=== PATIENT | male | born 1950 | race Hispanic/Latino ===

== ENCOUNTER 2017-06-25 07:41 | Day surgery (SDC) | payer OTHER, MEDICARE ==
[2017-06-19 10:06] LABS: BASOPHILS % (AUTO) 0.9 % (0.0-5.0); EOSINOPHILS % (AUTO) 1.6 % (0.0-8.0); HEMATOCRIT 43.8 % (42-54); LYMPHOCYTES % (AUTO) 27.6 % (21.0-51.0); MEAN CORPUSCULAR HEMOGLOBIN 31.7 pg (27.0-33.0); MEAN CORPUSCULAR HGB CONC 34.4 g/dL (32.0-36.0); MEAN CORPUSCULAR VOLUME 92.3 fL (79-99); NEUTROPHILS % (AUTO) 62.9 % (40.0-77.0); PLATELET COUNT (AUTO) 200 K/uL (130-400); RED BLOOD CELL COUNT(AUTO) 4.75 MIL/uL (4.50-6.20); RED CELL DISTRIBUTION WIDTH 13.2 % (11.0-15.5); WHITE BLOOD COUNT (AUTO) 6.6 K/uL (4.8-10.8)
[2017-06-19 10:07] VITALS: BP 123/76
[2017-06-19 10:17] LABS: CREATININE 1.2 mg/dL (0.5-1.5); POTASSIUM 4.8 mmol/L (3.5-5.1)
[~2017-06-25] VITALS: Ht 168.9 cm; Wt 75.4 kg
[2017-06-25] VITALS (9 sets, daily range): BP systolic 91–112; BP diastolic 58–71
[2017-06-25] MEDS: CEFAZOLIN SODIUM 1 GM VIAL IV SCH ×2 (05:00→10:34)
[~2017-06-25 07:41] MED LIST: ASPI500T65 PO; MULT-40 PO; SODIUM CHLORIDE 0.9% 1000ML 1,000 ML IV SCH
[2017-06-25] MEDS ORDERED: BUPIVACAINE/PF 0.5% 30ML VIAL ONE (08:43)
[2017-06-25] MEDS ORDERED: LACTATED RINGERS 1000ML 1,000 ML IV ONE (08:53)
[2017-06-25] MEDS ORDERED: LIDOCAINE HCL 1% 20 ML VIAL ONE (09:57)
[2017-06-25] MEDS ORDERED: LIDOCAINE HCL/EPINEPHRINE 50 ML VIAL IJ ONE (09:57)
[2017-06-25] MEDS ORDERED: MIDAZOLAM HCL 1 MG/ML 2ML VIAL ONE ×3 (10:25→10:42)
[2017-06-25] MEDS ORDERED: FENTANYL CITRATE PF 50 MCG/1 ML 2ML VIAL ONE (10:26)
== END 2017-06-25 12:35 | disposition home or self-care (01) ==
LOC: ENDO 07:41 → DAH 07:41 → ENDO 12:35
PROVIDERS: ATTEND Surgery
DX: D23.5 Other benign neoplasm of skin of trunk (principal); Z87.898 Personal history of other specified conditions; Z96.651 Presence of right artificial knee joint; Z98.890 Other specified postprocedural states; Z80.0 Family history of malignant neoplasm of digestive organs; Z83.79 Family history of other diseases of the digestive system
CPT/HCPCS: 11406; 12032; 36415; 80048; 85025; 88304; A4218; A4452; A4930; J0690; J2250 ×3; J3010; J3490; J7120

== ENCOUNTER 2018-05-29 11:56 | Emergency (ER) | payer MEDICARE, OTHER ==
[~2018-05-29 11:56] MED LIST changes: -SODIUM CHLORIDE 0.9% 1000ML 1,000 ML IV SCH
[2018-05-29] MEDS ORDERED: ONDANSETRON HCL 4 MG/2 ML VIAL ONE (12:19)
[2018-05-29] MEDS ORDERED: 0.9% SODIUM CHLORIDE 1000 ML IV BAG IV ONE (12:22)
[2018-05-29] MEDS ORDERED: ACETAMINOPHEN EXTRA STRENGTH 500 MG TABLET ONE (12:23)
[2018-05-29 12:30] LABS: BASOPHILS % (AUTO) 0.5 % (0.0-5.0); EOSINOPHILS % (AUTO) 0.5 % (0.0-8.0); HEMATOCRIT 47.1 % (42-54); LYMPHOCYTES % (AUTO) 3.4 % (21.0-51.0); MEAN CORPUSCULAR HEMOGLOBIN 31.8 pg (27.0-33.0); MEAN CORPUSCULAR HGB CONC 34.9 g/dL (32.0-36.0); MEAN CORPUSCULAR VOLUME 91.3 fL (79-99); MONOCYTES % (AUTO) 2.5 % (3.0-13.0); NEUTROPHILS % (AUTO) 93.1 % (40.0-77.0); PLATELET COUNT (AUTO) 186 K/uL (130-400); RED BLOOD CELL COUNT(AUTO) 5.16 MIL/uL (4.50-6.20); RED CELL DISTRIBUTION WIDTH 13.2 % (11.0-15.5); WHITE BLOOD COUNT (AUTO) 10.4 K/uL (4.8-10.8)
[2018-05-29 12:48] LABS: CREATININE 1.4 mg/dL (0.5-1.5); POTASSIUM 3.8 mmol/L (3.5-5.1)
[2018-05-29 12:53] LABS: ALBUMIN 4.2 g/dL (3.5-5.0); TOTAL PROTEIN, SERUM 7.7 g/dL (6.0-8.3)
[2018-05-29 14:05] LABS: APPEARANCE,URINE Clear (CLEAR); BILIRUBIN,URINE Negative (NEGATIVE); COLOR,URINE Yellow (YELLOW); GLUCOSE, URINE (UA) Negative (NEGATIVE); KETONES,URINE 15 mg/dL (NEGATIVE); LEUKOCYTE ESTERASE ,URINE Negative (NEGATIVE); NITRATE,URINE Negative (NEGATIVE); OCCULT BLOOD,URINE Negative (NEGATIVE); PH,URINE >=9.0 (5.0-8.0); PROTEIN,URINE Negative (NEGATIVE)
[2018-05-29 14:16] LABS: BACTERIA,URINE Rare /HPF (None Seen); RBC,URINE 0-1 /HPF (0-1); SQUAMOUS EPITHELIAL CELL,UR Rare /HPF (0-2); WBC,URINE None Seen /HPF (0-1)
== END 2018-05-29 15:40 | disposition home or self-care (01) ==
LOC: EDH 11:56
DX: R11.2 Nausea with vomiting, unspecified (principal); Z98.890 Other specified postprocedural states
CPT/HCPCS: 36415; 80053; 81001; 82550; 83690; 84484; 85025; 87804 ×2; 93005; 96361; 96374; 99284; J2405; J7030

== ENCOUNTER → 2023-07-27 | Outpatient (CLI) | payer OTHER | END | disposition home or self-care (01) | LOC: OIH 08:09 | PROVIDERS: ATTEND Family Medicine | DX: Z13.6 Encounter for screening for cardiovascular disorders (principal); R93.1 Abnormal findings on diagnostic imaging of heart and coronary circulation | CPT/HCPCS: 75571 ==

== ENCOUNTER 2024-01-06 10:28 | Emergency (ER) | payer OTHER ==
[~2024-01-06] VITALS: Ht 167.6 cm; Wt 68.9 kg
[2024-01-06 10:31] VITALS: BP 133/88; PULSE 56; RESP 16; TEMP 98
== END 2024-01-06 12:31 | disposition home or self-care (01) ==
LOC: EDH 10:28
DX: S92.314A Nondisplaced fracture of first metatarsal bone, right foot, initial encounter for closed fracture (principal); Z79.82 Long term (current) use of aspirin; Z79.899 Other long term (current) drug therapy; Z98.890 Other specified postprocedural states; W20.8XXA Other cause of strike by thrown, projected or falling object, initial encounter; Y93.89 Activity, other specified; Y92.89 Other specified places as the place of occurrence of the external cause; Y99.8 Other external cause status
CPT/HCPCS: 73630

== ENCOUNTER 2024-09-07 00:10 | Emergency (ER) | payer OTHER ==
[~2024-09-07] VITALS: Ht 167.6 cm; Wt 74.4 kg
--- NOTE | 2024-09-07 00:35 | EKG ---
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
[2024-09-07] MEDS: morPHINE 4 MG SYG IVP ONE (00:45)
[2024-09-07] MEDS: 0.9%NACL 1000ML 1,000 ML IV ONE (00:45)
[2024-09-07] MEDS: PANTOPrazole 40 MG/VIAL IVP ONE (00:45)
[2024-09-07] MEDS: ondanSETRON 4MG INJ IVP ONE (00:45)
[2024-09-07 00:48] LABS: BASOPHILS # (AUTO) 0.03 K/uL (0.00-0.20); BASOPHILS % (AUTO) 0.3 % (0.0-5.0); HEMATOCRIT 43.9 % (42-54); IMMATURE GRANULOCYTE ABSOLUTE 0.03 K/uL (0-1); LYMPHOCYTES # (AUTO) 0.7 K/uL (1.0-4.8); LYMPHOCYTES % (AUTO) 6.3 % (21.0-51.0); MEAN CORPUSCULAR HGB CONC 35.1 g/dL (32.0-36.0); MEAN CORPUSCULAR VOLUME 91.3 fL (79-99); MONOCYTES # (AUTO) 0.4 K/uL (0.1-1.0); MONOCYTES % (AUTO) 4.2 % (3.0-13.0); NEUTROPHILS # (AUTO) 9.1 K/uL (1.8-7.7); NEUTROPHILS % (AUTO) 87.9 % (40.0-77.0); PLATELET COUNT (AUTO) 180 K/uL (130-400); RED BLOOD CELL COUNT(AUTO) 4.81 MIL/uL (4.50-6.20); RED CELL DISTRIBUTION WIDTH 13.3 % (11.0-15.5); WHITE BLOOD COUNT (AUTO) 10.3 K/uL (4.8-10.8)
[2024-09-07 01:05] LABS: CREATININE 1.1 mg/dL (0.5-1.3); POTASSIUM 4.1 mmol/L (3.5-5.1)
[2024-09-07 01:08] LABS: BILIRUBIN,DIRECT 0.2 mg/dL (0.0-0.3); BILIRUBIN,TOTAL 0.9 mg/dL (0.2-1.0); MAGNESIUM 2.1 mg/dL (1.80-2.40); TOTAL PROTEIN, SERUM 7.8 g/dL (6.0-8.3)
[2024-09-07] MEDS ORDERED: IOHEXOL-350 75 ML VIAL IV ONE (01:48)
--- NOTE | 2024-09-07 01:57 | ERN ---
ED Note History of Present Illness Stated Complaint: ABDOMINAL PAIN, CRAMPING, DIARRHEA, BURPING Chief Complaint: Abdominal Pain Time Seen by MD: 00:17 Time Seen by Midlevel: 00:17 Dictation: The patient is a 74-year-old male with no significant past medical history who presents to the emergency department with complaints of periumbilical abdominal pain associated with nausea and nonbloody diarrhea onset 6:00 p.m.. Patient reports constant burping. Reports generalized weakness. Denies any fevers Allergies: Coded Allergies: No Known Drug Allergies (Unverified Allergy, Unknown, 04/03/16) Home Meds Reported Medications Aspirin (Horacio Advanced) 500 Mg Tablet, 500 MG PO DAILY, TAB 03/31/16 Multivitamin (Daily Multiple Vitamin) 1 Each Tablet, 1 EACH PO DAILY, TAB 03/31/16 Past Medical History Past Medical History: No Pertinent History Surgical History: Other Surgical History Other: KNEE SX RN Note Reviewed/Agreed w/PFSH: Yes Review of System Dictation Constitutional: Negative for fever,chills, and weight loss Eyes: Negative for injury, pain,redness, and discharge ENT: Negative for injury,pain or swelling Cardiovascular: Negative for chest pain, palpitations, and edema Respiratory: Negative for shortness of breath, cough, and wheezing, Abdomen/GI: Negative for vomiting and constipation positive for abdominal pain, nausea, diarrhea Back: Negative for injury and pain : Negative for injury, bleeding and discharge MS/Extremity: Negative for injury and deformity Skin: Negative for rash, and discoloration Neuro: Negative for headache, weakness, numbness, tingling, and seizure Psych: Negative for suicide ideation, homicidal ideation, and hallucinations Initial Vital Sign VS Vital Signs Date Time Temp Pulse Resp B/P (MAP) Pulse Ox O2 Delivery O2 Flow Rate FiO2 09/07/24 00:15 98.1 71 18 125/79 99 Room Air 0 09/07/24 00:40 21 Physical Exam Dictation Vital Signs reviewed General Appearance: Alert, oriented x 3, no acute distress, well developed, nourished. Head and Face: non-traumatic. Eyes: PERRL, pink conjunctivas, eyelid no trauma, anterior chamber with arcus senilis. Ears: Pinnas intact and no signs of trauma or erythema ear canals clear and no discharge TM no erythema Nose: No discharge, no bleeding. Oropharynx: Mouth normal, tongue pink. pharynx clear,no erythema, tonsils no exudates, no abscesses noted, mucous membrane moist Neck: Supple, non-tender, no thyromegaly, no masses, no JVD, no bruits Breast:Deferred Chest:No tenderness, no crepitus, no paradoxical movement, no retractions Lungs:Clear, well-ventilated, symmetric, no rales, no wheezing, no rhonchi, no stridor, good breath sounds bilaterally Heart: Regular rate, regular rhythm, no murmur, no gallops Vascular: no peripheral edema, Abdomen: Soft, positive bowel sounds, nondistended, no guarding, Right and lower abdominal tenderness no rebound, no masses no hepatomegaly, no splenomegaly, no Salcido's sign, no hernias. Rectal: Deferred Genital: Deferred Neurological: Normal speech, motor function intact, sensory function intact Musculoskeletal: Neck nontender, full range of motion, back nontender, full range of motion, Extremities: nontender, full range of motion Skin: Color pink, dry, no turgor, no rash, no lacerations, no abrasions, no contusions. Lymphatic: Deferred Results (Laboratory/Radiology) Laboratory/Radiology Laboratory Tests Test 09/07/24 00:38 09/07/24 02:20 White Blood Count 10.3 K/uL (4.8-10.8) Red Blood Count 4.81 MIL/uL (4.50-6.20) Hemoglobin 15.4 g/dL (14.0-18.0) Hematocrit 43.9 % (42-54) Mean Corpuscular Volume 91.3 fL (79-99) Mean Corpuscular Hemoglobin 32.0 pg (27.0-33.0) Mean Corpuscular Hemoglobin Concent 35.1 g/dL (32.0-36.0) Red Cell Distribution Width 13.3 % (11.0-15.5) Platelet Count 180 K/uL (130-400) Mean Platelet Volume 9.5 fL (7.5-10.5) Immature Granulocyte % (Auto) 0.3 % (0-1) Neutrophils (%) (Auto) 87.9 % (40.0-77.0) H Lymphocytes (%) (Auto) 6.3 % (21.0-51.0) L Monocytes (%) (Auto) 4.2 % (3.0-13.0) Eosinophils (%) (Auto) 1.0 % (0.0-8.0) Basophils (%) (Auto) 0.3 % (0.0-5.0) Neutrophils # (Auto) 9.1 K/uL (1.8-7.7) H Lymphocytes # (Auto) 0.7 K/uL (1.0-4.8) L Monocytes # (Auto) 0.4 K/uL (0.1-1.0) Eosinophils # (Auto) 0.10 K/uL (0.00-0.70) Basophils # (Auto) 0.03 K/uL (0.00-0.20) Absolute Immature Granulocyte (auto 0.03 K/uL (0-1) Nucleated Red Blood Cells 0.0 % (0.0-0.19) White Cell Morphology Comment See comments Sodium Level 137 mmol/L (136-145) Potassium Level 4.1 mmol/L (3.5-5.1) Chloride Level 101 mmol/L (101-111) Carbon Dioxide Level 27 mmol/L (21-32) Blood Urea Nitrogen 24 mg/dL (7-18) H Creatinine 1.1 mg/dL (0.5-1.3) Glomerular Filtration Rate Calc 71 mL/min (>90) Random Glucose 103 mg/dL (70-105) Total Calcium 9.0 mg/dL (8.5-10.1) Magnesium Level 2.10 mg/dL (1.80-2.40) Total Bilirubin 0.9 mg/dL (0.2-1.0) Direct Bilirubin 0.2 mg/dL (0.0-0.3) Aspartate Amino Transf (AST/SGOT) 24 U/L (10-37) Alanine Aminotransferase (ALT/SGPT) 30 U/L (12-78) Alkaline Phosphatase 105 U/L (50-136) Total Creatine Kinase 128 U/L (21-232) Troponin I High Sensitivity 8 ng/L (4-75) Total Protein 7.8 g/dL (6.0-8.3) Albumin 4.0 g/dL (3.5-5.0) Lipase 36 U/L (16-77) Urine Color LIGHT-YELLOW (YELLOW) Urine Appearance CLEAR (CLEAR) Urine pH 7.5 (5.0-8.0) Urine Specific [place] 1.024 (1.001-1.031) Urine Protein NEGATIVE mg/dL (NEGATIVE) Urine Glucose (UA) NEGATIVE mg/dL (NEGATIVE) Urine Ketones NEGATIVE mg/dL (NEGATIVE) Urine Occult Blood NEGATIVE (NEGATIVE) Urine Nitrate NEGATIVE (NEGATIVE) Urine Bilirubin NEGATIVE mg/dL (NEGATIVE) Urine Urobilinogen 0.2 mg/dL (0.2-1.0) Urine Leukocyte Esterase NEGATIVE Levy/uL REASON: Abdominal Pain ORDERING PHYSICIAN: FARZANA MORATAYA PROCEDURE: ABD PEL W - CT ABDOMEN/PELVIS W/CONTRAST EXAM: CT Abdomen and Pelvis with IV contrast CLINICAL HISTORY: Pain. TECHNIQUE: Postcontrast thin collimated axial CT images of the abdomen and pelvis were obtained with sagittal and coronal reformatted images also submitted. CT scan is done according to ALARA (As Low As Reasonably Achievable). 75 mL Omnipaque 350. COMPARISON: None. FINDINGS: Included lungs are clear. Mildly hydropic gallbladder without radiodense calculus. No focal abnormality within the liver, pancreas, adrenals, or kidneys. Transient attenuation differences within the spleen on early postcontrast phase that becomes homogeneous on delayed phase images. Unremarkable urinary bladder. Mild prostatomegaly. Nondilated fluid-filled small and large bowel loops without any zone of transition, with subtle diffuse mucosal thickening, concerning acute enterocolitis. Uncomplicated sigmoid diverticula. No significant bowel dilatation or obstruction. Unremarkable appendix. Mild calcific atherosclerotic disease in the abdominal aorta and its branches. No pathological lymphadenopathy in the abdomen or pelvis. No ascites or pneumoperitoneum. No acute bony abnormality is evident. Degenerative osseous changes. Bilateral chronic L5 spondylolysis with grade 1 anterior listhesis of L5 on S1. Grade 1 degenerative anterolisthesis of L4 on L5. IMPRESSIONS: Acute enterocolitis. Mildly hydropic gallbladder without radiodense calculus, recommend ultrasound of the gallbladder for further evaluation. Mild prostatomegaly. /[place] DICTATED BY: MILLIE BASILIO Jr., MD DATE: 09/07/24 0346 Labs Reviewed?: Yes EKG: (+) rhythm (Sinus rhythm) EKG Comment: Date:09/07/2024 Time:0030 Ventricular rate:60 OR interval:173 QRS duration:86 QT/QTc:396 EKG interpretation: Sinus rhythm Reviewed by ED Attending no STEMI ED Course ED Course Orders Procedure Category Date Status Time Cbc With Differential LAB 09/07/24 Complete 00:25 Troponin I High LAB 09/07/24 Complete Sensitivity 00:25 Urinalysis Profile LAB 09/07/24 Complete 00:25 Ct Abdomen/Pelvis CT 09/07/24 Resulted W/Contrast 00:25 12 Lead Ekg Tracing- EKG 09/07/24 Complete Technical 00:25 0.9%Nacl 1000ml (Ns PHA 09/07/24 Complete 1000ml) 00:30 Morphine 4mg Syg PHA 09/07/24 Complete (Morphine 4mg Syg) 00:30 Ondansetron 4mg Inj PHA 09/07/24 Complete (Zofran 4mg Inj) 00:30 Pantoprazole 40mg Inj PHA 09/07/24 Complete (Protonix 40mg Inj 00:30 Creatine Kinase, Total LAB 09/07/24 Complete 00:25 Lipase LAB 09/07/24 Complete 00:25 Basic Metabolic Panel LAB 09/07/24 Complete 00:25 Hepatic Function Panel LAB 09/07/24 Complete 00:25 Magnesium LAB 09/07/24 Complete 00:25 Iohexol (Omnipaque) PHA 09/07/24 Complete 01:48 Current Medications Medications (Trade) Dose Ordered Sig/Magdalena Route PRN Reason Start Time Stop Time Status Last Admin Dose Admin Iohexol (Omnipaque) 75 ml STK-MED ONCE IV 09/07/24 01:48 09/07/24 01:53 DC Morphine Sulfate (morPHINE 4MG SYG) 4 mg ONCE ONCE IVP 09/07/24 00:30 09/07/24 00:31 DC 09/07/24 00:45 Ondansetron HCl (zoFRAN 4MG INJ) 4 mg ONCE ONCE IVP 09/07/24 00:30 09/07/24 00:31 DC 09/07/24 00:45 Pantoprazole Sodium (PROTonix 40MG INJ) 40 mg ONCE ONCE IVP 09/07/24 00:30 09/07/24 00:31 DC 09/07/24 00:45 Sodium Chloride 1,000 ml @ 0 mls/hr ONCE ONCE IV 09/07/24 00:30 09/07/24 00:31 DC 09/07/24 00:45 Vital Signs Date Time Temp Pulse Resp B/P (MAP) Pulse Ox O2 Delivery O2 Flow Rate FiO2 09/07/24 02:35 98.6 57 16 116/74 99 Room Air* 0 09/07/24 01:30 69 17 121/69 99 Room Air* 0 09/07/24 00:40 66 17 120/73 99 Room Air* 0 09/07/24 00:15 98.1 71 18 125/79 99 Room Air 0 Medical Decision Making MDM The patient is a 74-year-old male with no significant past medical history who presents to the emergency department with complaints of periumbilical abdominal pain associated with nausea and nonbloody diarrhea onset 6:00 p.m.. Patient re ports constant burping. Reports generalized weakness. Denies any fevers CBC showed no leukocytosis, no anemia, chemistry showed no electrolyte imbalance, normal renal function, negative troponin, urinalysis unremarkable. CT abdomen pelvis showed enterocolitis. On physical exam patient is no acute distress. Patient reports feeling better after medication treatment. Labs and imaging discussed with the patient who agrees to follow up with PCP. Differential diagnosis: Gastroenteritis, gastritis, ACS, dehydration, electrolyte imbalance Need for hospitalization: Patient does not meet criteria for hospitalization. There are no social concerns with this patient. DX & DISP Disposition: Discharge Departure Impression: Primary Impression: Enterocolitis Condition: Stable Scripts Metronidazole (Metronidazole) 500 Mg Tablet 1 TAB PO TID for 7 Days, #21 TAB 0 Refills Prov: FARZANA MORATAYA EMPLOYEE RELATIONS ASSISTANT 09/07/24 Ciprofloxacin HCl (Cipro) 500 Mg Tablet 1 TAB PO BID for 7 Days, #14 TAB 0 Refills Prov: FARZANA MORATAYA EMPLOYEE RELATIONS ASSISTANT 09/07/24 Additional Instructions: Your labs were unremarkable. Your CT showed some enterocolitis. Take your medications as prescribed and until finished. Continue oral hydration at home. If symptoms worsen please return to ER. Do not drink any alcohol while take your antibiotics. This can cause severe side effects. FOLLOW-UP WITH PRIMARY CARE PROVIDER IN 1 TO 2 DAYS. TAKE MEDICATIONS DIRECTED HERE IN THE EMERGENCY ROOM. OKAY TO CONTINUE HOME MEDICATIONS UNLESS OTHERWISE DISCUSSED DURING YOUR VISIT IN THE EMERGENCY ROOM TODAY. RETURN TO YOUR NEAREST EMERGENCY ROOM IF SYMPTOMS WORSEN OR IF THERE IS NO IMPROVEMENT. CALL 911 IF YOU NEED IMMEDIATE ASSISTANCE. TAKE TYLENOL [id number] NEEDED AND IF NO CONTRAINDICATIONS ARE PRESENT. INCREASE ORAL HYDRATION. A WOUND CULTURE OR URINE CULTURE WAS ORDERED HERE IN THE EMERGENCY ROOM DEPARTMENT PLEASE FOLLOW-UP WITH PRIMARY CARE PROVIDER AND ADVISE THEM TO GET REPEAT PORTS FROM OUR FACILITY. IF YOU HAD ANY KAR WRAP/SPLINTS THAT WERE APPLIED HERE, PLEASE DO NOT REMOVE THEM UNTIL YOU SEE YOUR PRIMARY CARE OR SPECIALTY. Referrals: CHUCKY RAINES MD (PCP) Time of Disposition: 02:59 I have reviewed the case, and I agree with, Diagnosis and Plan FARZANA MORATAYA [facility] Sep 07, 2024 01:57
[2024-09-07 02:30] LABS: APPEARANCE,URINE CLEAR (CLEAR); BILIRUBIN,URINE NEGATIVE (NEGATIVE); COLOR,URINE LIGHT-YELLOW (YELLOW); GLUCOSE, URINE (UA) NEGATIVE (NEGATIVE); KETONES,URINE NEGATIVE (NEGATIVE); LEUKOCYTE ESTERASE ,URINE NEGATIVE Leu/uL (NEGATIVE); NITRATE,URINE NEGATIVE (NEGATIVE); OCCULT BLOOD,URINE NEGATIVE (NEGATIVE); PH,URINE 7.5 (5.0-8.0); PROTEIN,URINE NEGATIVE (NEGATIVE); UROBILINOGEN,URINE 0.2 mg/dL (0.2-1.0)
[2024-09-07 02:31] LABS: ADD UA MICROSCOPIC NO
[2024-09-07 02:35] VITALS: BP 116/74; PULSE 57; RESP 16; TEMP 98.6; O2SAT 99
--- NOTE | 2024-09-07 02:47 | HMCIMG ---
EXAM: CT Abdomen and Pelvis with IV contrast CLINICAL HISTORY: Pain. TECHNIQUE: Postcontrast thin collimated axial CT images of the abdomen and pelvis were obtained with sagittal and coronal reformatted images also submitted. CT scan is done according to ALARA (As Low As Reasonably Achievable). 75 mL Omnipaque 350. COMPARISON: None. FINDINGS: Included lungs are clear. Mildly hydropic gallbladder without radiodense calculus. No focal abnormality within the liver, pancreas, adrenals, or kidneys. Transient attenuation differences within the spleen on early postcontrast phase that becomes homogeneous on delayed phase images. Unremarkable urinary bladder. Mild prostatomegaly. Nondilated fluid-filled small and large bowel loops without any zone of transition, with subtle diffuse mucosal thickening, concerning acute enterocolitis. Uncomplicated sigmoid diverticula. No significant bowel dilatation or obstruction. Unremarkable appendix. Mild calcific atherosclerotic disease in the abdominal aorta and its branches. No pathological lymphadenopathy in the abdomen or pelvis. No ascites or pneumoperitoneum. No acute bony abnormality is evident. Degenerative osseous changes. Bilateral chronic L5 spondylolysis with grade 1 anterior listhesis of L5 on S1. Grade 1 degenerative anterolisthesis of L4 on L5. IMPRESSIONS: Acute enterocolitis. Mildly hydropic gallbladder without radiodense calculus, recommend ultrasound of the gallbladder for further evaluation. Mild prostatomegaly. /Luis Manuel
[2024-09-07] MEDS ORDERED: CIPR-278 PO (03:00)
[2024-09-07] MEDS ORDERED: METR-172 PO (03:00)
== END 2024-09-07 03:13 | disposition home or self-care (01) ==
LOC: EDH 00:10
DX: K52.9 Noninfective gastroenteritis and colitis, unspecified (principal); Z79.82 Long term (current) use of aspirin; Z79.899 Other long term (current) drug therapy
CPT/HCPCS: 99285; 74177; 96374; 96375; 96361; 82550; 80076; 83735; 84484; 80048; 83690; 85025; 81003; 36415; 93005; J7030; J2405; J2270; J2470; Q9967

== ENCOUNTER 2024-10-02 18:59 | Emergency (ER) | payer OTHER ==
[~2024-10-02] VITALS: Ht 167.6 cm; Wt 71.7 kg
[~2024-10-02 18:59] MED LIST changes: +CIPR-278 PO; +METR-172 PO
--- NOTE | 2024-10-02 19:06 | NUR ---
UA CUP PROVIDED
--- NOTE | 2024-10-02 19:26 | ERN ---
ED Note History of Present Illness Stated Complaint: DISCOMFORT ON PENIS,WEAKNESS Chief Complaint: Urinary Frequency Time Seen by MD: 19:04 Dictation: PATIENT IS A 74-YEAR-OLD MALE STATES HE IS COMING IN TONIGHT WITH COMPLAINTS OF URINARY URGENCY AND FREQUENCY. HE STATES HE GETS UP EVERY 35-40 MINUTES AT HOME WHILE HE IS IN BED AND HAS A URINATE SEVERAL TIMES A NIGHT. HE STATES HE THINKS HE IS EMPTYING HIS BLADDER IN HIS NEVER BEING DIAGNOSED WITH PROSTATE ENLARGEMENT. CURRENTLY COMPLAINING OF BLADDER PAIN, NOTED TO BE DISTENDED 2-3 FINGERBREADTHS ABOVE SYMPHYSIS PUBIS IS. URINE WAS COLLECTED. NO FEVER NO CHILLS NO NAUSEA VOMITING. Allergies: Coded Allergies: No Known Drug Allergies (Unverified Allergy, Unknown, 04/03/16) Home Meds Active Scripts Metronidazole (Metronidazole) 500 Mg Tablet, 1 TAB PO TID for 7 Days, #21 TAB 0 Refills Prov:FARZANA MORATAYA [employer]ING[employer]DERING [employer] 09/07/24 Ciprofloxacin HCl (Cipro) 500 Mg Tablet, 1 TAB PO BID for 7 Days, #14 TAB 0 Refills Prov:RENA MORATAYALEN [facility] 09/07/24 Reported Medications Aspirin (Horacio Advanced) 500 Mg Tablet, 500 MG PO DAILY, TAB 03/31/16 Multivitamin (Daily Multiple Vitamin) 1 Each Tablet, 1 EACH PO DAILY, TAB 03/31/16 Past Medical History Past Medical History: No Pertinent History Surgical History: Other Surgical History Other: KNEE SX RN Note Reviewed/Agreed w/PFSH: Yes Review of System Dictation CONSTITUTIONAL: NEGATIVE EXCEPT FOR HPI HEAD/FACE: NEGATIVE EXCEPT FOR HPI EENT: NEGATIVE EXCEPT FOR HPI RESPIRATORY: NEGATIVE EXCEPT FOR HPI GASTROINTESTINAL/ABDOMINAL: NEGATIVE EXCEPT FOR HPI GENITOURINARY: NEGATIVE EXCEPT FOR HPI URINARY URGENCY AND FREQUENCY WITH RETENTION MUSCULOSKELETAL: NEGATIVE EXCEPT FOR HPI INTEGUMENTARY: NEGATIVE EXCEPT FOR HPI NEUROLOGICAL/PSYCH: NEGATIVE EXCEPT FOR HPI HEMATOLOGIC/LYMPHATIC: NEGATIVE EXCEPT FOR HPI ALL SYSTEMS NEGATIVE, EXCEPT NOTED ABOVE. 13 POINT REVIEW OF SYSTEMS ASSESSED AND ALL NEGATIVE EXCEPT FOR ABOVE. Initial Vital Sign VS Vital Signs Date Time Temp Pulse Resp B/P (MAP) Pulse Ox O2 Delivery O2 Flow Rate FiO2 10/02/24 19:01 99.0 90 18 112/70 100 Room Air Physical Exam Dictation VITAL SIGNS REVIEWED GENERAL APPEARANCE: ALERT, ORIENTED X 3, MODERATE ACUTE DISTRESS, WELL DEVELOPED, NOURISHED. HEAD AND FACE: NON-TRAUMATIC. EYES: PERRL, PINK CONJUNCTIVAS, EYELID NO TRAUMA, ANTERIOR CHAMBER WITH ARCUS SENILIS. EARS: PINNAS INTACT AND NO SIGNS OF TRAUMA OR ERYTHEMA EAR CANALS CLEAR AND NO DISCHARGE TM NO ERYTHEMA NOSE: NO DISCHARGE, NO BLEEDING. OROPHARYNX: MOUTH NORMAL, TONGUE PINK, PHARYNX CLEAR,NO ERYTHEMA, TONSILS NO EXUDATES, NO ABSCESSES NOTED, MUCOUS MEMBRANE MOIST NECK: SUPPLE, NON-TENDER, NO THYROMEGALY, NO MASSES, NO JVD, NO BRUITS BREAST:DEFERRED CHEST:NO TENDERNESS, NO CREPITUS, NO PARADOXICAL MOVEMENT, NO RETRACTIONS LUNGS:CLEAR, WELL-VENTILATED, SYMMETRIC, NO RALES, NO WHEEZING, NO RHONCHI, NO STRIDOR, GOOD BREATH SOUNDS BILATERALLY HEART: REGULAR RATE, REGULAR RHYTHM, NO MURMUR, NO GALLOPS VASCULAR: NO PERIPHERAL EDEMA, ABDOMEN: SOFT, POSITIVE BOWEL SOUNDS, NONDISTENDED, NO GUARDING, NONTENDER, NO REBOUND, NO MASSES NO HEPATOMEGALY, NO SPLENOMEGALY, NO ARMENDARIZ'S SIGN, NO HERNIAS. RECTAL: DEFERRED GENITAL: DEFERRED BLADDER DISTENDED, 2-3 FINGERBREADTHS ABOVE SYMPHYSIS PUBIS NEUROLOGICAL: NORMAL SPEECH, MOTOR FUNCTION INTACT, SENSORY FUNCTION INTACT MUSCULOSKELETAL: NECK NONTENDER, FULL RANGE OF MOTION, BACK NONTENDER, FULL RANGE OF MOTION, EXTREMITIES: NONTENDER, FULL RANGE OF MOTION SKIN: COLOR PINK, DRY, NO TURGOR, NO RASH, NO LACERATIONS, NO ABRASIONS, NO CONTUSIONS. LYMPHATIC: DEFERRED Results (Laboratory/Radiology) Laboratory/Radiology Laboratory Tests Test 10/02/24 19:25 Urine Color YELLOW (YELLOW) Urine Appearance CLEAR (CLEAR) Urine pH 6.5 (5.0-8.0) Urine Specific [place] 1.016 (1.001-1.031) Urine Protein 10 mg/dL (NEGATIVE) H Urine Glucose (UA) NEGATIVE mg/dL (NEGATIVE) Urine Ketones 10 mg/dL (NEGATIVE) H Urine Occult Blood SMALL (NEGATIVE) H Urine Nitrate NEGATIVE (NEGATIVE) Urine Bilirubin NEGATIVE mg/dL (NEGATIVE) Urine Urobilinogen 0.2 mg/dL (0.2-1.0) Urine Leukocyte Esterase 75 Levy/uL (NEGATIVE) H Urine RBC 6-10 /HPF (0-1) H Urine WBC 11-25 /HPF (0-1) H Urine Transitional Epithelial Cells RARE /HPF (None Seen) Urine Bacteria None /HPF (None Seen) Labs Reviewed?: Yes ED Course ED Course Orders Procedure Category Date Status Time Bladder Scan CPOE 10/02/24 Transmitted 19:23 Urinalysis Profile LAB 10/02/24 Complete 19:23 Culture Urine CARLEY 10/02/24 In Process 19:33 Vital Signs Date Time Temp Pulse Resp B/P (MAP) Pulse Ox O2 Delivery O2 Flow Rate FiO2 10/02/24 19:01 99.0 90 18 112/70 100 Room Air 1945/POSTVOID RESIDUAL 6 ML PER GUCCI [id number]/ 1957/PATIENT WILL BE TREATED WITH ANTIBIOTICS FOR ACUTE CYSTITIS WITH HEMATURIA. WE WILL USE LEVAQUIN DUE TO PROBABLE PROSTATE ENLARGEMENT. WE WILL REFER PATIENT TO DR MO/NEUROLOGIST FOR FOLLOW UP Medical Decision Making MDM MEDICAL DISCHARGE MAKING BASED ON URINALYSIS AND POSTVOID RESIDUAL. POSTVOID RESIDUAL 6 ML PATIENT HAS A ACUTE CYSTITIS WITH HEMATURIA, NO BACTERIA WE WILL TREAT WITH LEVAQUIN AND PLACE PATIENT ON FLOMAX AND HAVE HIM FOLLOW UP WITH UROLOGIST DX & DISP Disposition: Discharge Departure Impression: Primary Impression: Acute cystitis with hematuria Additional Impression: BPH (benign prostatic hyperplasia) Condition: Stable Scripts Tamsulosin HCl (Flomax) 0.4 Mg Cap.er.24h 0.4 MG PO DAILY for 30 Days, #30 CAPSULE. Prov: RAYSHAWN CALDERON NP 10/02/24 Levofloxacin (Levofloxacin) 500 Mg Tablet 1 TAB PO DAILY for 7 Days, #7 TAB 0 Refills Prov: RAYSHAWN CALDERON NP 10/02/24 Additional Instructions: FOLLOW-UP WITH PRIMARY CARE PROVIDER IN 1 TO 2 DAYS. TAKE MEDICATIONS DIRECTED HERE IN THE EMERGENCY ROOM. OKAY TO CONTINUE HOME MEDICATIONS UNLESS OTHERWISE DISCUSSED DURING YOUR VISIT IN THE EMERGENCY ROOM TODAY. RETURN TO YOUR NEAREST EMERGENCY ROOM IF SYMPTOMS WORSEN OR IF THERE IS NO IMPROVEMENT. CALL 911 IF YOU NEED IMMEDIATE ASSISTANCE. TAKE TYLENOL OR MOTRIN [id number] NEEDED AND IF NO CONTRAINDICATIONS ARE PRESENT. INCREASE ORAL HYDRATION. A WOUND CULTURE OR URINE CULTURE WAS ORDERED HERE IN THE EMERGENCY ROOM DEPARTMENT PLEASE FOLLOW-UP WITH PRIMARY CARE PROVIDER AND ADVISE THEM TO GET REPEAT PORTS FROM OUR FACILITY. IF YOU HAD ANY KAR WRAP/SPLINTS THAT WERE APPLIED HERE, PLEASE DO NOT REMOVE THEM UNTIL YOU SEE YOUR PRIMARY CARE OR SPECIALTY. TAKE LEVAQUIN DIRECTED UNTIL GONE. TAKE FLOMAX DIRECTED DAILY. CALL UROLOGIST FOR APPOINTMENT IN THE NEXT 1-2 DAYS. Referrals: CHUCKY RAINES MD (PCP) ROSE MARY MO MD Time of Disposition: 20:01 I have reviewed the case, and I agree with, Diagnosis and Plan RAYSHAWN CALDERON NP Oct 02, 2024 19:26
[2024-10-02 19:31] LABS: APPEARANCE,URINE CLEAR (CLEAR); GLUCOSE, URINE (UA) NEGATIVE (NEGATIVE); LEUKOCYTE ESTERASE ,URINE 75 Leu/uL (NEGATIVE); NITRATE,URINE NEGATIVE (NEGATIVE); OCCULT BLOOD,URINE SMALL (NEGATIVE)
[2024-10-02 19:33] LABS: ADD UA MICROSCOPIC YES
--- NOTE | 2024-10-02 19:47 | NUR ---
6 ML POST VOID VIA BLADDER SCAN
[2024-10-02] MEDS ORDERED: LEVO-70 PO (20:02)
[2024-10-02] MEDS ORDERED: TAMS-55 PO (20:02)
[2024-10-02 20:13] VITALS: BP 121/74; PULSE 88; RESP 18; TEMP 98.9; O2SAT 100
== END 2024-10-02 20:14 | disposition home or self-care (01) ==
LOC: EDH 18:59
DX: N30.01 Acute cystitis with hematuria (principal); N40.1 Benign prostatic hyperplasia with lower urinary tract symptoms; Z79.82 Long term (current) use of aspirin; Z79.899 Other long term (current) drug therapy
CPT/HCPCS: 81001; 87086; 99283